=== PATIENT | male | born 1990 | race Caucasian/White ===

== ENCOUNTER 2020-11-03 14:41 | Emergency (ER) | payer OTHER ==
[~2020-11-03] VITALS: Ht 170.2 cm; Wt 111.1 kg
== END 2020-11-03 15:56 | disposition home or self-care (01) ==
LOC: ED 14:41
DX: S89.91XA Unspecified injury of right lower leg, initial encounter (principal); X50.9XXA Other and unspecified overexertion or strenuous movements or postures, initial encounter
CPT/HCPCS: 73560; 99283-25